=== PATIENT | female | born 1985 | race African-American/Black ===

== ENCOUNTER → 2016-11-09 | Outpatient (CLI) | payer SELFPAY ==
[~2016-11-09] MED LIST: CETIRIZINE; NO HOME MEDICATIONS; PHENERGAN 25 TA25 MG PO; PHENERGAN25 MG RC; PRENATAL VITAMI1 TA5 PO
== END ==
LOC: COL.RAD 15:46
DX: M51.36 Other intervertebral disc degeneration, lumbar region (principal)

== ENCOUNTER → 2018-01-13 | Outpatient (CLI) | payer SELFPAY ==
[~2018-01-13] VITALS: Ht 160 cm; Wt 94.1 kg
[~2018-01-13] MED LIST changes: +ATIVAN 1MG T1 MG/TAB PO
[2018-01-13 08:50] VITALS: BP 148/73; PULSE 81
[2018-01-13 10:12] VITALS: BP 130/91; PULSE 73
== END ==
LOC: COL.RAD 08:31
DX: R22.1 Localized swelling, mass and lump, neck (principal)
CPT/HCPCS: 25581

== ENCOUNTER 2019-11-09 12:19 | Emergency (ER) | payer OTHER ==
[~2019-11-09] VITALS: Ht 162.6 cm; Wt 108.2 kg
[2019-11-09 12:24] VITALS: TEMP 97.7
[2019-11-09 13:02] LABS: BASO % 0.5 % (0.0-2.0); EOS # 0.1 (0.0-0.7); EOS % 1.3 % (0-4.0); GRAN # 5.2 (1.4-6.5); GRAN % 66.1 % (42.2-75.2); HEMOGLOBIN 10.3 g/dl (12.5-16.0); LYMPH % 25.3 % (20.0-51.0); MEAN CELL VOLUME 81 fl (80.0-100.0); MEAN CORPUSCULAR HEMOGLOBIN 25 pg (27.0-31.0); MEAN CORPUSCULAR HGB CONC 31 g/dl (33.0-37.0); MONO # 0.5 (0.1-0.6); MONO % 6.2 % (1.7-9.3); PLATELET COUNT 326 K/mm3 (130-400); RED BLOOD COUNT 4.11 M/mm3 (4.10-5.30); REDCELL DISTRIBUTION WIDTH-CV 15.9 % (11.5-14.5)
[2019-11-09 13:03] LABS: HEMATOCRIT 33.1 % (37.0-47.0)
[2019-11-09 13:22] LABS: ALBUMIN 4.4 gm/dL (3.5-5.0); BILIRUBIN,TOTAL 0.5 mg/dL (0.0-1.0); C-REACTIVE PROTEIN 1.8 mg/dL (0.0-0.9); CALCIUM 9.5 mg/dL (8.4-10.2); CREATININE, serum 0.53 (0.52-1.25); TOTAL PROTEIN 8.4 gm/dL (6.4-8.2)
[2019-11-09 13:28] LABS: COLLECTION METHOD CLEAN CATCH
[2019-11-09 13:35] LABS: MUCOUS Present /lpf; PH 7 (5-8); URINE APPEARANCE Hazy; URINE BACTERIA Rare /hpf; URINE BILIRUBIN Negative (NEGATIVE); URINE BLOOD Negative (NEGATIVE); URINE COLOR Yellow; URINE GLUCOSE 1+ (NEGATIVE); URINE KETONE Trace (NEGATIVE); URINE LEUKOCYTE ESTERASE Negative (NEGATIVE); URINE NITRATE Negative (NEGATIVE); URINE PROTEIN(semi-quant) 1+ (NEGATIVE); URINE UROBILINOGEN Negative (NEGATIVE)
[2019-11-09] MEDS ORDERED: ZOFRAN ODT4 MG PO (14:20)
[2019-11-09] MEDS ORDERED: PERCOCET 325 MG1 TA2 PO (14:20)
[2019-11-09 15:34] VITALS: BP 119/76; PULSE 96
== END 2019-11-09 15:34 | disposition home or self-care (01) ==
LOC: COL.ER 12:19
PROVIDERS: Physician Assistant
DX: K80.20 Calculus of gallbladder without cholecystitis without obstruction (principal); K80.50 Calculus of bile duct without cholangitis or cholecystitis without obstruction
CPT/HCPCS: J1170; J1885; J2270; J2405; J7030

== ENCOUNTER 2019-11-19 10:05 | Day surgery (SDC) | payer OTHER ==
[~2019-11-19] VITALS: Ht 162.6 cm; Wt 106.4 kg
[~2019-11-19 10:05] MED LIST changes: +PERCOCET 325 MG1 TA2 PO; +ZOFRAN ODT4 MG PO
[2019-11-19 11:02] VITALS: BP 135/72; PULSE 88; TEMP 98.1
[2019-11-19] MEDS ORDERED: PERCOCET 325 MG1 TA2 PO (14:21)
[2019-11-19 15:05] VITALS: BP 104/60; PULSE 95; TEMP 98.2
--- NOTE | 2019-11-19 15:05 | NUR ---
Patient arrives back to [facility] alert, denies nausea, complains of 4/10 abdominal pain. Patient did receive pain medication in PACU. Oxygen 2L per nasal cannula in place. Patient monitor applied, vitals stable. Patient resting on cart with fiance at bedside.
[2019-11-19 15:15] VITALS: BP 117/52; PULSE 90
--- NOTE | 2019-11-19 15:15 | NUR ---
Patient given water and crackers at this time.
[2019-11-19 15:30] VITALS: BP 113/53; PULSE 85
--- NOTE | 2019-11-19 15:30 | NUR ---
Patient tolerating water and crackers without any nausea. Patient given sprite. Complains of pain 4/10 right upper abdomen, denies nausea. O2 therapy discontinued at this time.
[2019-11-19 15:45] VITALS: BP 103/63; PULSE 81
[2019-11-19 16:00] VITALS: BP 106/61; PULSE 86
--- NOTE | 2019-11-19 16:00 | NUR ---
Patient reports that he pain is more tolerable at this time and that she is feeling better and ready to go home soon.
--- NOTE | 2019-11-19 16:05 | NUR ---
Patient up to restroom at this time. First and Third incision/bandaid does have some blood/drainage from each site. Patient steady gait to restroom with standby assist.
--- NOTE | 2019-11-19 16:10 | NUR ---
Patient back to room at this time. Patient reports that she was unable to urinate. Patient educated to call Dr Ryan vazquez by [id number] if unable to urinate by then. Incision 1, 3 both cleaned and dressed with new bandaid. No more bleeding noted after cleansing sites.
--- NOTE | 2019-11-19 16:20 | NUR ---
Dismissal instructions gone over with patient and patient's fiance. Both verbalize understanding and all questions answered.
--- NOTE | 2019-11-19 16:30 | NUR ---
Patient discharged to private vehicle at patient enterance via wheelchair without any complications or problems. Patient and fiance leave thanking staff for services.
== END 2019-11-19 16:30 | disposition home or self-care (01) ==
LOC: SDCO 10:05
DX: K80.10 Calculus of gallbladder with chronic cholecystitis without obstruction (principal); D64.9 Anemia, unspecified; J45.909 Unspecified asthma, uncomplicated; D86.9 Sarcoidosis, unspecified; E07.9 Disorder of thyroid, unspecified; G43.909 Migraine, unspecified, not intractable, without status migrainosus; M41.9 Scoliosis, unspecified; E66.01 Morbid (severe) obesity due to excess calories; Z68.41 Body mass index [BMI] 40.0-44.9, adult; Z79.899 Other long term (current) drug therapy; Z98.51 Tubal ligation status; Z83.3 Family history of diabetes mellitus; Z84.1 Family history of disorders of kidney and ureter
CPT/HCPCS: J0690; J1100; J1170; J1885; J2405; J2704; J7120

== ENCOUNTER 2020-10-06 05:58 | Emergency (ER) | payer OTHER ==
[~2020-10-06] VITALS: Ht 160 cm; Wt 98.6 kg
[2020-10-06 06:13] VITALS: TEMP 97.7
[2020-10-06 07:03] LABS: BASO # 0.1 (0.0-0.2); BASO % 0.4 % (0.0-2.0); EOS % 0.3 % (0-4.0); GRAN # 10.1 (1.4-6.5); GRAN % 79.8 % (42.2-75.2); HEMOGLOBIN 11.6 g/dl (12.5-16.0); LYMPH # 1.2 (1.2-3.4); LYMPH % 9.6 % (20.0-51.0); MEAN CELL VOLUME 76 fl (80.0-100.0); MEAN CORPUSCULAR HEMOGLOBIN 24 pg (27.0-31.0); MEAN CORPUSCULAR HGB CONC 32 g/dl (33.0-37.0); MEAN PLATELET VOLUME 9.9 fl (7.4-10.4); MONO # 1.1 (0.1-0.6); MONO % 8.6 % (1.7-9.3); PLATELET COUNT 351 K/mm3 (130-400); RED BLOOD COUNT 4.85 M/mm3 (4.10-5.30); REDCELL DISTRIBUTION WIDTH-CV 16.4 % (11.5-14.5)
[2020-10-06 07:08] LABS: HEMATOCRIT 36.7 % (37.0-47.0)
[2020-10-06] MEDS ORDERED: ACTOS30 MG PO (07:16)
[2020-10-06] MEDS ORDERED: ULTRAM 50MG TAB50 MG PO (07:16)
[2020-10-06 07:19] LABS: ALANINE AMINOTRANSFERASE 12 U/L (4-34); ALBUMIN 4.5 gm/dL (3.5-5.0); ALKALINE PHOSPHATASE 201 U/L (50-136); ANION GAP 23 mmol/L (7-16); AST,SGOT 19 U/L (15-37); BILIRUBIN,TOTAL 0.6 mg/dL (0.0-1.0); BLOOD UREA NITROGEN 9 mg/dL (7-17); CALCIUM 10.9 mg/dL (8.4-10.2); CHLORIDE 104 mmol/L (98-107); CREATININE, serum 0.71 (0.52-1.25); GLUCOSE 369 mg/dL (74-106); POTASSIUM 3.6 mmol/L (3.4-5.0); SODIUM 134 mmol/L (137-145); TOTAL PROTEIN 9.7 gm/dL (6.4-8.2)
[2020-10-06 07:23] LABS: CARBON DIOXIDE 7 mmol/L (22-30)
[2020-10-06 07:33] LABS: COLLECTION METHOD CLEAN CATCH
[2020-10-06 07:55] LABS: MUCOUS Present /lpf; PH 5 (5-8); URINE APPEARANCE Hazy; URINE BACTERIA None Seen /hpf; URINE BILIRUBIN Negative (NEGATIVE); URINE BLOOD 2+ (NEGATIVE); URINE COLOR Yellow; URINE GLUCOSE 3+ (NEGATIVE); URINE KETONE 2+ (NEGATIVE); URINE LEUKOCYTE ESTERASE Negative (NEGATIVE); URINE NITRATE Negative (NEGATIVE); URINE PROTEIN(semi-quant) 3+ (NEGATIVE); URINE UROBILINOGEN Negative (NEGATIVE)
[2020-10-06 07:59] LABS: LIPASE 56 U/L (23-300)
[2020-10-06 09:10] LABS: TROPONIN-I < 0.012 ng/mL (0.000-0.035)
[2020-10-06 10:00] VITALS: BP 131/60; PULSE 103
== END 2020-10-06 10:15 | disposition short-term general hospital (02) ==
LOC: COL.ER 05:58
PROVIDERS: Emergency Medicine
DX: N20.0 Calculus of kidney (principal); E86.0 Dehydration; E11.9 Type 2 diabetes mellitus without complications; Z79.84 Long term (current) use of oral hypoglycemic drugs
CPT/HCPCS: J0696; J1815; J1885; J2405; J3480; J7030; J7120